=== PATIENT | male | born 1945 | race Caucasian/White ===

== ENCOUNTER → 2017-04-17 | Outpatient (CLI) | payer OTHER | LOC: FIMAGING 10:21 | PROVIDERS: ATTEND Physician Assistant | DX: R10.9 Unspecified abdominal pain (principal) ==

== ENCOUNTER → 2017-05-14 | Outpatient (CLI) | payer OTHER ==
[~2017-05-14] MED LIST: IOPAMIDOL (ISOVUE-300) 100 ML BTL ONE
== END ==
LOC: FIMAGING 07:50
PROVIDERS: ATTEND Internal Medicine Gastroenterology
DX: R14.0 Abdominal distension (gaseous) (principal)
CPT/HCPCS: 74177; Q9967

== ENCOUNTER → 2017-06-02 | Outpatient (CLI) | payer OTHER | LOC: BMCIMAGING 12:14 | PROVIDERS: ATTEND Internal Medicine | DX: R63.4 Abnormal weight loss (principal) ==

== ENCOUNTER → 2017-06-17 | Outpatient (CLI) | payer OTHER | LOC: FIMAGING 08:00 | PROVIDERS: ATTEND Internal Medicine | DX: S73.191A Other sprain of right hip, initial encounter (principal); M25.851 Other specified joint disorders, right hip; M76.01 Gluteal tendinitis, right hip ==

== ENCOUNTER → 2017-06-18 | Outpatient (CLI) | payer OTHER | LOC: FIMAGING 13:11 | PROVIDERS: ATTEND Internal Medicine | DX: N40.0 Benign prostatic hyperplasia without lower urinary tract symptoms (principal) ==

== ENCOUNTER → 2017-07-15 | Outpatient (CLI) | payer OTHER | LOC: BMCIMAGING 09:21 | PROVIDERS: ATTEND Orthopaedic Surgery | DX: M25.551 Pain in right hip (principal) ==

== ENCOUNTER → 2017-08-20 | Outpatient (CLI) | payer OTHER | LOC: BMCIMAGING 11:22 | PROVIDERS: ATTEND Internal Medicine | DX: Z13.820 Encounter for screening for osteoporosis (principal); M85.80 Other specified disorders of bone density and structure, unspecified site ==

== ENCOUNTER → 2018-03-18 | Outpatient (CLI) | payer OTHER | LOC: BMCIMAGING 08:58 | PROVIDERS: ATTEND Orthopaedic Surgery | PROC: BQ101ZZ Fluoroscopy of Right Hip using Low Osmolar Contrast (ICD-10-PCS; principal; 2018-03-18) | DX: M16.11 Unilateral primary osteoarthritis, right hip (principal) ==

== ENCOUNTER → 2018-07-13 | Outpatient (CLI) | payer OTHER | LOC: BMCIMAGING 08:29 | PROVIDERS: ATTEND Orthopaedic Surgery | DX: M16.11 Unilateral primary osteoarthritis, right hip (principal) ==

== ENCOUNTER → 2018-08-11 | Outpatient (CLI) | payer OTHER | PROVIDERS: ATTEND Internal Medicine | DX: R13.10 Dysphagia, unspecified (principal); R07.0 Pain in throat; Z98.890 Other specified postprocedural states | CPT/HCPCS: 74230; 92611; G8996; G8997; G8998 ==

== ENCOUNTER → 2018-08-21 | Outpatient (CLI) | payer OTHER | LOC: FIMAGING 08:27 | PROVIDERS: ATTEND Neurological Surgery | DX: M48.02 Spinal stenosis, cervical region (principal); M50.322 Other cervical disc degeneration at C5-C6 level; M50.323 Other cervical disc degeneration at C6-C7 level ==

== ENCOUNTER → 2018-09-10 | Outpatient (CLI) | payer OTHER | LOC: FIMAGING 14:46 | PROVIDERS: ATTEND Physician Assistant | DX: M40.12 Other secondary kyphosis, cervical region (principal); M50.31 Other cervical disc degeneration, high cervical region ==

== ENCOUNTER 2019-03-10 05:56 | Observation (INO) | payer OTHER ==
[2019-03-10] MEDS ORDERED: LR 1,000 ML IV ONE (06:09)
[2019-03-10] MEDS ORDERED: LIDOCAINE 2% JELLY 20 ML (UROJECT) ONE ×2 (07:01→08:10)
[2019-03-10] MEDS ORDERED: OPIUM/BELLADONNA ALKALO SUPP PR ONE ×2 (07:02→08:11)
--- NOTE | 2019-03-10 07:11 | PDANEPAE ---
ANE Past Medical History - Cardiovascular History Hx Hypertension: Yes Hx Arrhythmias: No Hx Chest Pain: No Hx Coronary Artery / Peripheral Vascular Disease: No Hx CHF / Valvular Disease: No Hx Palpitations: No - Pulmonary History Hx COPD: No Hx Asthma/Reactive Airway Disease: Yes Hx Recent Upper Respiratory Infection: No Hx Oxygen in Use at Home: No Hx Sleep Apnea: No Sleep Apnea Screening Result - Last Documented: Positive Pulmonary History Comment: Mild asthma well controlled. Seasonal allergies. - Neurologic History Hx Cerebrovascular Accident: No Hx Seizures: No Hx Dementia: No - Endocrine History Hx Diabetes: No - Renal History Hx Renal Disorders: No - Liver History Hx Hepatic Disorders: No - Neurological & Psychiatric Hx Hx Neurological and Psychiatric Disorders: Yes Neurological / Psychiatric History Comment: Depression/anxiety. - Cancer History Hx Cancer: Yes Cancer History Comment: Basal cell CA. - Congenital Disorder History Hx Congenital Disorders: No - GI History Hx Gastrointestinal Disorders: Yes Gastrointestinal History Comment: GERD s/p Sameer funduplication. - Other Health History Other Health History: BPH. Turbinectomy. Upper right molar extraction. Non- removable bridge front tooth. Vasectomy - Chronic Pain History Chronic Pain: Yes - Surgical History Prior Surgeries: Thyroplasty 05/2011. C3-C4 fusion 2009. C3-C4 posterior fusion 2009. Basal cell CA resection 2008. Sameer fundoplication 04/2009. R foot surgery MTP greater than 10 years ago. Vasectomy 2001. TUIP 2001. Nasal turbinectomy 1996 ANE Review of Systems Review of Systems: - Exercise capacity METS (RN): 4 METS ANE Patient History - Allergies Allergies/Adverse Reactions: Iodine Contrast Allergy (Severe, Uncoded 03/04/19 09:42) Hives - Home Medications Home Medications: Atorvastatin Calcium 10 mg PO DAILY 03/04/19 [Last Taken 03/09/19] Dextran 70/Hypromellose [Artificial Tears Eye Drops] 1 drop OP PRN 03/04/19 [ Last Taken 03/09/19] Fluticasone Propionate [Flonase Allergy Relief] 2 sprays NS BID 03/04/19 [Last Taken 03/09/19] Levalbuterol Inhaler [Xopenex Hfa Inhaler (*)] 2 puffs IH Q6 PRN 03/04/19 [Last Taken 03/03/19] Losartan Potassium 100 mg PO DAILY 03/04/19 [Last Taken 03/09/19] Mineral Oil/Petrolatum,White [Artificial Tears Eye Ointment] 1 amber OP PRN [Last Taken 03/03/19] Montelukast Sodium 10 mg PO HS 03/04/19 [Last Taken 03/09/19] Multivitamin [One Daily] 1 each PO DAILY 03/04/19 [Last Taken 03/03/19] Naphazoline HCl/Phenir Mal [Eye Allergy Relief Drops] 1 drop OP DAILY PRN [Last Taken 03/09/19] Saliva Substitute Combo No.9 [Biotene (*)] 15 ml MM QID PRN 03/04/19 [Last Taken 03/09/19] Sodium Chloride 5% [Harman-128 5%] 1 drop EACHEYE QID PRN 03/04/19 [Last Taken ] Tamsulosin HCl 0.8 mg PO DAILY18 03/04/19 [Last Taken 03/09/19] Testosterone Cypionate 150 mg IM AD 03/04/19 [Last Taken 03/09/19] Zolpidem Tartrate [Ambien] 5 mg PO HS 03/04/19 [Last Taken 03/09/19] celeCOXIB [Celebrex (*)] 200 mg PO DAILY 03/04/19 [Last Taken 03/03/19] - NPO status NPO Since - Liquids (Date): 03/10/19 NPO Since - Liquids (Time): 01:30 NPO Since - Solids (Date): 03/09/19 NPO Since - Solids (Time): 20:00 - Smoking Hx Smoking Status: Former smoker - Family Anes Hx Family Hx Anesthesia Complications: None. ANE Labs/Vital Signs - Vital Signs Height: 162.56 cm Weight: 56.245 kg ANE Physical Exam - Airway Mallampati Score: Class 2 - ASA Status ASA Status: II ANE Anesthesia Plan Anesthesia Plan: GA w LMA
[2019-03-10] MEDS ORDERED: MIDAZOLAM 2 MG/2 ML VIAL ONE (08:18)
[2019-03-10] MEDS ORDERED: fentaNYL 100 MCG/2 ML INJ ONE (08:20)
[2019-03-10] MEDS ORDERED: PROPOFOL 200 MG/20 ML VIAL ONE (08:21)
[2019-03-10] MEDS ORDERED: METOCLOPRAMIDE 10 MG/2 ML VIAL ONE (08:26)
[2019-03-10] MEDS ORDERED: PHENYLEPHRINE 10 MG/ML SDV ONE (08:26)
[2019-03-10] MEDS ORDERED: ONDANSETRON 4 MG/2 ML VIAL ONE ×2 (08:26→11:02)
[2019-03-10] MEDS ORDERED: LIDOCAINE 2% JELLY 6 ML TOPICAL SYR ONE (08:26)
[2019-03-10] MEDS ORDERED: ceFAZolin 2 GM/DEXTROSE 100 ML IV ONE (09:00)
--- NOTE | 2019-03-10 09:02 | PDHPUP ---
History & Physical Update H&P update statement: This history and physical update is based on an assessment of the patient which was completed after admission or registration (within 24 hours), but prior to the surgery/procedure. H&P update: H&P reviewed & patient examined, no change in patient's condition since H&P completed
[2019-03-10] MEDS ORDERED: OPIUM/BELLADONNA ALKALO SUPP PR PRN (09:05)
[2019-03-10] MEDS ORDERED: HYDROCODONE/APAP 5/325 TAB PO PRN (09:05)
[2019-03-10] MEDS ORDERED: HYDROmorphONE/DILAUDID 1 MG/ML INJ IVP PRN (09:05)
[2019-03-10] MEDS ORDERED: ONDANSETRON 4 MG/2 ML VIAL IVP PRN (09:05)
[2019-03-10] MEDS ORDERED: fentaNYL 100 MCG/2 ML INJ IVP PRN (10:33)
[2019-03-10] MEDS ORDERED: ALBUTEROL 3 ML DEYVIAL IH PRN (10:33)
[2019-03-10] MEDS ORDERED: LR 500 ML IV PRN (10:33)
[2019-03-10] MEDS ORDERED: MEPERIDINE 25 MG/0.5 ML AMP IVP PRN (10:33)
[2019-03-10] MEDS ORDERED: NALOXONE HCL 0.4 MG/ML INJ IVP PRN (10:33)
[2019-03-10] MEDS ORDERED: oxyCODONE IR 5 MG TAB PO PRN (10:33)
[2019-03-10] MEDS ORDERED: PROMETHAZINE HCL 25 MG/ML INJ IVP PRN (10:33)
--- NOTE | 2019-03-10 10:35 | POSTANESTH ---
Post Anesthetic Evaluation Cardiovascular Status: Normal, Stable Respiratory Status: Normal, Stable Level of Consciousness/Mental Status: Can Participate in Eval Pain Control: Adequate, Prn Tx Ordered Nausea/Vomiting Control: Adequate, Prn Tx Ordered Complications Possibly Related to Anesthesia: None Noted
--- NOTE | 2019-03-10 10:36 | POSTOPPROG ---
Post Op Note Date of Operation: 03/10/19 Surgeon: Chanda Vuong Anesthesiologist: Dr. Jean Anesthesia: GET(General Endotracheal) Pre-op Diagnosis: BPH w LUTs Post-op Diagnosis: same Indication: BPH w LUTs Procedure: cysto, TURP Findings: obstructive trilobar hypertrophy Inf/Abcess present in the surg proc area at time of surgery?: No EBL: 50-100 Complications: none, tolerated procedure well Drains: Other (Chaves) Specimen(s): prostate chips
[2019-03-10] MEDS ORDERED: oxyCODONE IR 5 MG TAB ONE (11:02)
--- NOTE | 2019-03-10 11:11 | GOP ---
[f rep st] OPERATIVE REPORT DATE OF OPERATION: 03/10/2019 SURGEON: Chanda Vuong MD ANESTHESIA: General. ANESTHESIOLOGIST: Dr. Jean. PREOPERATIVE DIAGNOSIS: Benign prostatic hyperplasia with lower urinary tract symptoms. POSTOPERATIVE DIAGNOSIS: Benign prostatic hyperplasia with lower urinary tract symptoms. PROCEDURE PERFORMED: Cystoscopy and transurethral resection of prostate in saline. FINDINGS: Obstructive trilobar hypertrophy. SPECIMENS: TURP chips. ESTIMATED BLOOD LOSS: 75 mL. INDICATIONS: The patient presented to my office with significantly bothersome lower urinary tract symptoms. He underwent a cystoscopy in my office showing a large obstructing median lobe, high-riding bladder neck, and lateral coaptation of his prostate. I recommended a transurethral resection of prostate due to the median lobe. He agreed with this plan. I discussed the risks including bleeding, infection, pain, injury to the urethra, the bladder, the ureteral orifices, small risk of bladder neck contracture, small risk of urethral stricture. I did let him know that retrograde ejaculation is expected post procedure, and he understood this. DESCRIPTION OF PROCEDURE: The patient was taken back to the cystoscopy suite, placed on the cystoscopy table in supine position. General anesthesia induced without complication. Time-out performed. Core measures satisfied, including placement of a Marylin Hugger, SCDs, administration of 2 g Ancef antibiotics. He was brought to the end of the table, placed in a dorsal lithotomy position. All pressure points padded. Genitalia draped and prepped in the standard surgical fashion with chlorhexidine due to iodine allergy. Jacob sounds were gently used to dilate the distal urethral meatus up to a 28-Iranian. Then with a visual obturator, the visual obturator was advanced under direct vision into the bladder. The loop was assembled and then resection began after finding both the left and the right ureteral orifices. He did have a prominent median lobe. I started at the 5 and 7 o'clock position, resected posteriorly. Then, I resected just proximal to the verumontanum but did not resect past the verumontanum. I then resected the intervening median lobe tissue, being cognizant of where the ureteral orifices were and the verumontanum at all times. Then, I resected the left lateral lobe, then the right lateral lobe, and then anterior tissue. At the end of the procedure, I felt resection was excellent. He was wide open when sitting at the verumontanum. I used the [employer] evacuator throughout the procedure to remove chips. I used electrocautery liberally to gain hemostasis, and at the end, all chips were removed. He was completely hemostatic, and I was very happy with the resection. The verumontanum and the ureteral orifices were not violated during the resection. The scope was removed. Then, a 24-Iranian 3-way Chaves catheter was placed. Continuous bladder irrigation was initiated, and it was clear to light pink. The chips were gathered for pathology examination. I did place lidocaine jelly into the urethra before placing the Chaves, and I did place a belladonna and opium suppository per rectum for bladder spasms. At this point, the procedure was considered complete. He was awoken from anesthesia and transferred to PACU in good condition. COMPLICATIONS: None. The patient tolerated the procedure well. DRAINS: A Chaves catheter. /[id number]/MODL MTDD
[2019-03-10] MEDS: D5W LR 1,000 ML IV SCH ×2 (12:38→20:16)
[2019-03-10] MEDS: ceFAZolin 2 GM/DEXTROSE 100 ML IV SCH (17:30)
[2019-03-10] MEDS ORDERED: LEVALBUTEROL INHALER 200 PUFFS/15 GM MDI IH PRN (18:04)
[2019-03-10] MEDS ORDERED: TEARS/DEXTRAN 70/HYPROMELLOSE 15 ML OPHT.BTL OP PRN (18:04)
[2019-03-10] MEDS ORDERED: BIOTENE DRY MOUTH ORAL RINSE 237 ML BTL MM PRN (18:04)
[2019-03-10] MEDS: SENNOSIDES/DOCUSATE SODIUM TAB PO SCH (20:17)
[2019-03-10] MEDS: FLUTICASONE NASAL 120 SPRAYS/16 GM MDI EACHNARE SCH (20:18)
[2019-03-10] MEDS ORDERED: MONTELUKAST SODIUM 10 MG TAB PO SCH (21:00)
[2019-03-10] MEDS ORDERED: ZOLPIDEM TARTRATE 5 MG TAB PO SCH (21:00)
[2019-03-11] MEDS: ceFAZolin 2 GM/DEXTROSE 100 ML IV SCH (00:50)
[2019-03-11] MEDS ORDERED: ZOLPIDEM TARTRATE 5 MG TAB PO ONE (02:00)
[2019-03-11] MEDS ORDERED: LOSARTAN POTASSIUM 50 MG TAB PO SCH (09:00)
--- NOTE | 2019-03-11 10:04 | ASMTCASEMG ---
Living Arrangements What is your living Answers: With Spouse arrangement? Who do you live with? Type Of Residence What kind of residence do Answers: House you live in? Discharge Plan Comments Coordination Status Comments Notes: Pt had TURP surgery yesterday by Dr. Vuong. CM met with pt in his room this morning. Pt lives at home in [place] with his Carrie [phone]. He is independent. He does not use any assistive devices. Dr. Vuong anticipates that pt will go home with catheter in. Pt has set a follow-up appointment with Dr. Vuong in her office next Wednesday 03/14. No CM needs identified at this time. CM D/C plan: Independent ot home Date Signed: 03/11/2019 10:03 AM Electronically Signed By:Kimberly Ontiveros
[2019-03-11] MEDS: SENNOSIDES/DOCUSATE SODIUM TAB PO SCH (10:12)
[2019-03-11] MEDS: FLUTICASONE NASAL 120 SPRAYS/16 GM MDI EACHNARE SCH (10:21)
--- NOTE | 2019-03-11 13:33 | SOAPPROG ---
SOAP Progress Note Assessment/Plan: Assessment: POD 1 TURP Doing well, urine light pink. Plan: Voiding trial underway. Nursing to communicate PVRs. Reassured him blood in urine normal. Follow up Thursday in my clinic. 03/11/19 13:30 Subjective: FLOR Told diet Ambulating Objective: Vital Signs Temp Pulse Resp BP Pulse Ox 36.7 C 69 16 118/56 L 96 03/11/19 11:29 03/11/19 11:29 03/11/19 11:29 03/11/19 11:29 03/11/19 11:29 03/10/19 03/11/19 03/12/19 05:59 05:59 05:59 Intake Total 1150 Output Total 1850 Balance -700 Gen NAD A*O CV regular Lungs normal effort Abd soft Ext warm tsai in place, urine light pink off CBI. Filled w NS until pt felt full, tsai removed. Voiding trial underway. - Pending Discharge Pending Discharge Within 24 Hours: Yes Pending Discharge Date: 03/12/19 Pending Discharge Time: 11:00 ICD10 Worksheet Patient Problems: Problems Problem Status Onset BPH (benign prostatic hyperplasia) Acute - ICD10 Problem Qualifiers (1) BPH (benign prostatic hyperplasia) Qualifiers: Lower urinary tract symptom presence: symptoms present Lower urinary tract symptom detail: urinary frequency Qualified Code(s): N40.1 - Benign prostatic hyperplasia with lower urinary tract symptoms; R35.0 - Frequency of micturition ; R35.0 - Frequency of micturition
[2019-03-11 16:16] VITALS: BP 114/53
[2019-03-11] MEDS ORDERED: LIDOCAINE 2% JELLY 20 ML (UROJECT) UR ONE (17:15)
[2019-03-11] MEDS ORDERED: TAMSULOSIN HCL 0.4 MG CAP PO SCH (18:00)
[2019-03-11] MEDS ORDERED: ATORVASTATIN CALCIUM 10 MG TAB PO SCH (18:00)
--- NOTE | 2019-03-17 11:09 | GDS ---
[f rep st] DISCHARGE SUMMARY PROCEDURE PERFORMED: Transurethral resection of prostate in saline. INDICATION FOR ADMISSION: BPH with lower urinary tract symptoms. HOSPITAL COURSE: The patient underwent the procedure without complications. He was admitted overrust on continuous bladder irrigation. His bladder irrigation was able to be weaned by the morning of postoperative day 1. It was turned off. He was ambulating, tolerating general diet, and doing quite well. I decided to attempt to remove his Chaves catheter and do a voiding trial, but he did fail the voiding trial, and an 18-Malay catheter was replaced back by nursing staff. He was discharged with his Chaves catheter and his hospital stay well. He will follow up with me in 3 days for removal of h is catheter and again a voiding trial. DISCHARGE MEDICATIONS: For the medications, please see the EMR. PHYSICAL EXAMINATION: For his exam, please see the EMR. FOLLOWUP: Followup will be for Chaves removal in 3 days. /[id number]/MODL
== END 2019-03-11 19:40 | disposition home or self-care (01) ==
LOC: FSGY 05:56 → F3E 09:05 → F1N 10:41
PROVIDERS: ADMIT Urology; ATTEND Urology
PROC: 0V508ZZ Destruction of Prostate, Via Natural or Artificial Opening Endoscopic (ICD-10-PCS; principal; 2019-03-10 07:30)
DX: N40.1 Benign prostatic hyperplasia with lower urinary tract symptoms (principal); N13.8 Other obstructive and reflux uropathy; I10 Essential (primary) hypertension; L57.0 Actinic keratosis; J45.20 Mild intermittent asthma, uncomplicated; E78.49 Other hyperlipidemia
CPT/HCPCS: 0421T; 88305; J0690; J2250; J2370; J2405; J2704; J2765; J3010

== ENCOUNTER 2019-03-12 16:51 | Emergency (ER) | payer OTHER ==
[2019-03-12] MEDS ORDERED: NS 1,000 ML IV ONE (17:25)
--- NOTE | 2019-03-12 17:25 | EDPHY ---
HPI/HX/ROS/PE/MDM Narrative: CHIEF COMPLAINT: Chaves catheter not draining HPI: This is a 73-year-old male who was status post TURP procedure. Chaves catheter was placed yesterday for concerns of possible urinary retention. This has been draining well until earlier this afternoon when he noticed increase in dark red color of urine followed by cessation of urine flow into the bag and abdominal cramping. He also complains of a low-grade fever at home to 100.1 degrees. Since arrival to the ER, the urine has started to flow again into his catheter and he now reports no abdominal discomfort. REVIEW OF SYSTEMS: A comprehensive 10 system review of systems is otherwise negative aside from elements mentioned in the history of present illness and medical decision making. PMH: Includes TURP. SOCIAL HISTORY: . Urologist is Dr. Vuong. PHYSICAL EXAM: General:Patient is alert, in no acute distress. ENT:Eyes are normal to inspection. ENT inspection normal. Neck: Normal inspection. Full range of motion. Respiratory:No respiratory distress. Breath sounds normal bilaterally. Cardiovascular: Regular rate and rhythm. Strong peripheral pulses. Normal cap refill. Abdomen:The abdomen is nontender to palpation. There are no peritoneal signs. There are normal bowel sounds. Back: Normal to inspection. No tenderness to palpation. : Chaves catheter is in place. Glans and scrotum are normal. There is dark red wine colored urine in the bag. Skin: Normal color. No rash. Warm and dry. Extremities: Normal appearance. Full range of motion. Neuro: Oriented x3. Normal motor function. Normal sensory function. ED Course: 73 y/o male who is s/p TURP procedure presents with concerns for urinary retention; Chaves catheter placed yesterday. On my exam, the catheter is draining , there is lanny hematuria, dark red in color. Plan for labs including CBC, chemistries, UA, co-ag panel. 17:[address] Vuong, urologist. We will flush the catheter here in the emergency department. Catheter flush performed successfully. 19:30 Temperature 36.8. As the patient is afebrile and WBC is within normal limits, I will not place the patient on antibiotics at this time. Plan to discharge home in good condition. He will follow up with his urologist, Dr. Vuong, as scheduled. Follow up and return precautions discussed. He is comfortable with this plan. - Data Points Laboratory Results: Laboratory Results 03/12/19 17:35 03/12/19 17:35 03/12/19 03/12/19 03/12/19 17:35 17:35 17:35 WBC 10.85 10^3/uL H 10^3/uL (3.80-9.50) RBC 3.61 10^6/uL L 10^6/uL (4.40-6.38) Hgb 11.6 g/dL L g/dL (13.7-17.5) Hct 34.1 % L % (40.0-51.0) MCV 94.5 fL fL (81.5-99.8) MCH 32.1 pg pg (27.9-34.1) MCHC 34.0 g/dL g/dL (32.4-36.7) RDW 11.8 % % (11.5-15.2) Plt Count 165 10^3/uL 10^3/uL (150-400) MPV 10.7 fL fL (8.7-11.7) Neut % (Auto) 81.9 % H % (39.3-74.2) Lymph % (Auto) 5.8 % L % (15.0-45.0) [place] % (Auto) 9.2 % % (4.5-13.0) Eos % (Auto) 2.4 % % (0.6-7.6) Baso % (Auto) 0.3 % % (0.3-1.7) Nucleat RBC Rel Count 0.0 % % (0.0-0.2) Absolute Neuts (auto) 8.89 10^3/uL H 10^3/uL (1.70-6.50) Absolute Lymphs (auto) 0.63 10^3/uL L 10^3/uL (1.00-3.00) Absolute Monos (auto) 1.00 10^3/uL H 10^3/uL (0.30-0.80) Absolute Eos (auto) 0.26 10^3/uL 10^3/uL (0.03-0.40) Absolute Basos (auto) 0.03 10^3/uL 10^3/uL (0.02-0.10) Absolute Nucleated RBC 0.00 10^3/uL 10^3/uL (0-0.01) Immature Gran % 0.4 % % (0.0-1.1) Immature Gran # 0.04 10^3/uL 10^3/uL (0.00-0.10) PT 14.0 SEC SEC (12.0-15.0) INR 1.12 (0.83-1.16) APTT 32.5 SEC SEC (23.0-38.0) Sodium 137 mEq/L mEq/L (135-145) Potassium 3.8 mEq/L mEq/L (3.5-5.2) Chloride 104 mEq/L mEq/L (97-110) Carbon Dioxide 24 mEq/l mEq/l (22-31) Anion Gap 9 mEq/L mEq/L (6-14) BUN 21 mg/dL mg/dL (7-23) Creatinine 1.0 mg/dL mg/dL (0.7-1.3) Estimated GFR > 60 Glucose 115 mg/dL H mg/dL (70-100) Calcium 8.7 mg/dL mg/dL (8.5-10.4) Urine Color Urine Appearance Urine pH Ur Specific [place] Urine Protein Urine Ketones Urine Blood Urine Nitrate Urine Bilirubin Urine Urobilinogen Ur Leukocyte Esterase Urine RBC Urine WBC Ur Epithelial Cells Urine Glucose 03/12/19 17:28 WBC RBC Hgb Hct MCV MCH MCHC RDW Plt Count MPV Neut % (Auto) Lymph % (Auto) [place] % (Auto) Eos % (Auto) Baso % (Auto) Nucleat RBC Rel Count Absolute Neuts (auto) Absolute Lymphs (auto) Absolute Monos (auto) Absolute Eos (auto) Absolute Basos (auto) Absolute Nucleated RBC Immature Gran % Immature Gran # PT INR APTT Sodium Potassium Chloride Carbon Dioxide Anion Gap BUN Creatinine Estimated GFR Glucose Calcium Urine Color RED Urine Appearance MODERATELY TURBID Urine pH 6.0 (5.0-7.5) Ur Specific [place] 1.015 (1.002-1.030) Urine Protein 2+ H (NEGATIVE) Urine Ketones NEGATIVE (NEGATIVE) Urine Blood 2+ H (NEGATIVE) Urine Nitrate NEGATIVE (NEGATIVE) Urine Bilirubin NEGATIVE (NEGATIVE) Urine Urobilinogen NEGATIVE EU EU (0.2-1.0) Ur Leukocyte Esterase NEGATIVE (NEGATIVE) Urine RBC 50-182 /hpf H /hpf (0-3) Urine WBC 25-50 /hpf H /hpf (0-3) Ur Epithelial Cells NONE SEEN /lpf /lpf (NONE-1+) Urine Glucose 1+ H (NEGATIVE) Medications Given: Discontinued Medications Sodium Chloride (Ns) 1,000 mls @ 0 mls/hr IV EDNOW ONE; Wide Open PRN Reason: Protocol Stop: 03/12/19 17:26 Last Admin: 03/12/19 17:36 Dose: 1,000 mls General Time Seen by Provider: 03/12/19 17:09 Initial Vital Signs: Initial Vital Signs Temperature (C) 37 C 03/12/19 16:54 Heart Rate 82 03/12/19 16:54 Respiratory Rate 18 03/12/19 16:54 Blood Pressure 125/72 H 03/12/19 16:54 O2 Sat (%) 97 03/12/19 16:54 O2 Delivery Mode Room Air Allergies/Adverse Reactions: Iodinated Contrast- Oral and IV Dye Allergy (Verified 03/11/19 18:22) Hives Home Medications: Medication Instructions Recorded Atorvastatin Calcium 10 mg PO DAILY18 03/04/19 Dextran 70/Hypromellose 1 drop OP DAILY PRN 03/04/19 [Artificial Tears Eye Drops] Fluticasone Propionate [Flonase 2 sprays NS BID 03/04/19 Allergy Relief] Levalbuterol Inhaler [Xopenex Hfa 2 puffs IH Q6 PRN 03/04/19 Inhaler (*)] Losartan Potassium 100 mg PO DAILY 03/04/19 Montelukast Sodium 10 mg PO HS 03/04/19 Saliva Substitute Combo No.9 15 ml MM QID PRN 03/04/19 [Biotene (*)] Tamsulosin HCl 0.8 mg PO DAILY18 03/04/19 Testosterone Cypionate 150 mg IM Q21D 03/04/19 Zolpidem Tartrate [Ambien] 5 mg PO HS 03/04/19 Multivitamins [Multivitamin (*)] 1 each PO DAILY 03/10/19 Zolpidem Tartrate [Ambien 5MG (*)] 5 mg PO DAILY@02 PRN 03/10/19 Hydrocodone/APAP 5/325 [Le[place] 1 - 2 tab PO Q4HRS PRN #10 tab 03/11/19 5/325 (*)] Oxybutynin Chloride 5 mg PO TID PRN #21 tablet 03/11/19 Sennosides/Docusate Sodium 1 tab PO BID PRN #60 tab 03/11/19 [Senokot-S] celeCOXIB [Celebrex (*)] 200 mg PO DAILY #1 cap 03/11/19 Departure - Departure Disposition: Home, Routine, Self-Care Clinical Impression: S/P TURP, Urinary retention Hematuria Qualifiers: Hematuria type: gross Qualified Code(s): R31.0 - Gross hematuria Condition: Good Instructions: Urinary Retention in Men (ED), Hematuria (ED) Additional Instructions: Follow up with Dr. Vuong as scheduled. Return to the emergency department for fever, urinary retention or other recurrence of symptoms, or if you develop chest pain, shortness of breath, or other worsening of condition or further concerns. Referrals: Pushpa Sepulveda MD [Primary Care Provider] - As per Instructions Chanda Vuong MD [Medical Doctor] - As per Instructions Report Scribed for: Dimitry Gunderson Report Scribed by: Meme Littlejohn Date of Report: 03/12/19 Time of Report: 17:26 Physician Review and Approval Statement: Portions of this note were transcribed by an ED scribe. I personally performed the history, physical exam, and medical decision making; and confirm the accuracy of the information in the transcribed note.
[2019-03-12 17:46] LABS: PLATELET COUNT 165 10^3/uL (150-400)
[2019-03-12 18:04] LABS: INR 1.12 (0.83-1.16)
[2019-03-12 19:30] VITALS: BP 135/66
== END 2019-03-12 19:45 | disposition home or self-care (01) ==
DX: R33.9 Retention of urine, unspecified (principal); R31.0 Gross hematuria; Z98.890 Other specified postprocedural states

== ENCOUNTER 2019-03-13 11:41 | Emergency (ER) | payer OTHER ==
--- NOTE | 2019-03-13 11:45 | EDPHY ---
H & P Time Seen by Provider: 03/13/19 11:45 HPI/ROS: HPI: This is a 73-year-old male who presents with Chief Complaint: Tsai not working/draining Location: Quality: Tsai not working/straining Duration: Signs and Symptoms: no fever, no nausea, no vomiting, no hematemesis, no blood in stool, no abdominal bloating, no diarrhea, no back pain, no urinary symptoms , no testicular/groin pain, no indigestion, no chest pain, no shortness of breath Timing: Acute Severity: [id number] Context: Patient has a history of TURP on Thursday with Dr. Chanda Vuong, Tsai catheter placed on 03/11/2019 secondary to urinary retention, presents for the 2nd time to the emergency room in 24 hr with complaints of fully "not draining." He reports that he change the bag yesterday evening, went to bed, woke up this morning with no urine in his Tsai bag. Patient reports that he has suprapubic fullness and bloating. Denies fever, chills. Does not take any blood thinners. Yesterday in the emergency room Tsai catheter flushed with good urine return. He has an appointment with Dr. Vuong on Thursday Modifying Factors: None Comment: ROS: A comprehensive 10 system review of systems is otherwise negative aside from elements mentioned in the history of present illness. MEDICAL/SURGICAL/SOCIAL HISTORY: Medical history: Hypertension cyst, arthritis Surgical history: TURP Social history: Retired. Former smoker. Family history noncontributory. CONSTITUTIONAL: Very polite and talkative elderly white male, awake and alert, no obvious distress HEENT: Atraumatic and normocephalic, PERRL, EOMI. Nares patent; no rhinorrhea; no nasal mucosal edema. Tympanic membranes clear. Oropharynx clear, no exudate and moist pink mucosa. Airway patent. No lymphadenopathy. No meningismus. Cardiovascular: Normal S1/S2, regular rate, regular rhythm, without murmur rub or gallop. PULMONARY/CHEST: Symmetrical and nontender. Clear to auscultation bilaterally. Good air movement. No accessory muscle usage. ABDOMEN: Soft, nondistended, nontender, no rebound, no guarding, no peritoneal signs, no masses or organomegaly. No CVAT. Male : circumcised penis, bilateral descended testes, no testicular swelling, no testicular masses, no penile discharge, no lesions, negative Prehn's sign. Tsai catheter in urethra with no urine noted in bag. EXTREMITIES: 2/2 pulses, strength 5/5, no deformities, no clubbing, no cyanosis or edema. NEUROLOGICAL: no focal neuro deficits. GCS 15. SKIN: Warm and dry, no erythema. no rash. Good capillary refill. Source: Patient, Old records Exam Limitations: No limitations - Medical/Surgical History Hx Asthma: No Hx Chronic Respiratory Disease: No Hx Diabetes: No Hx Cardiac Disease: No Hx Renal Disease: No Hx Cirrhosis: No Hx Alcoholism: No Hx HIV/AIDS: No Hx Splenectomy or Spleen Trauma: No Other PMH: TURP 3 days ago with tsai insertion. htn arthirits - Social History Smoking Status: Former smoker Constitutional: Initial Vital Signs Temperature (C) 36.7 C 03/13/19 11:52 Heart Rate 86 03/13/19 11:52 Respiratory Rate 18 03/13/19 11:52 Blood Pressure 141/68 H 03/13/19 11:52 O2 Sat (%) 97 03/13/19 11:52 O2 Delivery Mode Room Air Allergies/Adverse Reactions: Iodinated Contrast- Oral and IV Dye Allergy (Verified 03/13/19 11:54) Hives Home Medications: Medication Instructions Recorded Atorvastatin Calcium 10 mg PO DAILY18 03/04/19 Dextran 70/Hypromellose 1 drop OP DAILY PRN 03/04/19 [Artificial Tears Eye Drops] Fluticasone Propionate [Flonase 2 sprays NS BID 03/04/19 Allergy Relief] Levalbuterol Inhaler [Xopenex Hfa 2 puffs IH Q6 PRN 03/04/19 Inhaler (*)] Losartan Potassium 100 mg PO DAILY 03/04/19 Montelukast Sodium 10 mg PO HS 03/04/19 Saliva Substitute Combo No.9 15 ml MM QID PRN 03/04/19 [Biotene (*)] Tamsulosin HCl 0.8 mg PO DAILY18 03/04/19 Testosterone Cypionate 150 mg IM Q21D 03/04/19 Zolpidem Tartrate [Ambien] 5 mg PO HS 03/04/19 Multivitamins [Multivitamin (*)] 1 each PO DAILY 03/10/19 Zolpidem Tartrate [Ambien 5MG (*)] 5 mg PO DAILY@02 PRN 03/10/19 Hydrocodone/APAP 5/325 [[place] 1 - 2 tab PO Q4HRS PRN #10 tab 03/11/19 5/325 (*)] Oxybutynin Chloride 5 mg PO TID PRN #21 tablet 03/11/19 Sennosides/Docusate Sodium 1 tab PO BID PRN #60 tab 03/11/19 [Senokot-S] celeCOXIB [Celebrex (*)] 200 mg PO DAILY #1 cap 03/11/19 Medical Decision Making ED Course/Re-evaluation: Vital signs reviewed and stable upon arrival. No systemic signs. Chart review shows laboratory studies and urinalysis were stable from yesterday. No signs of infection or indication for antibiotics. Bladder ultrasound ordered at bedside per RN ygosx=674 mL Stai catheter flushed with 30 ML and returning of reddish colored urine with clots RN at bedside instructed patient on Tsai care This patient was seen under the supervision of my secondary supervising physician. I evaluated and cared for this patient independently. Differential Diagnosis: Differential diagnosis includes but is not limited to clotting, urinary retention, Tsai malfunction. Departure - Departure Disposition: Home, Routine, Self-Care Clinical Impression: Tsai catheter problem Qualifiers: Encounter type: subsequent encounter Qualified Code(s): T83.9XXD - Unspecified complication of genitourinary prosthetic device, implant and graft, subsequent encounter Condition: Good Instructions: Tsai Catheter Placement and Care (ED) Additional Instructions: Please flush tsai as needed for clot dislodgement. Attached tsai night bag during the evening and switch to day bag during the day. Follow-up with Dr. Lakhani on Thursday. Referrals: Pushpa Sepulveda MD [Primary Care Provider] - As per Instructions Chanda Vuong MD [Medical Doctor] - As per Instructions
[2019-03-13 15:07] VITALS: BP 126/88
== END 2019-03-13 15:07 | disposition home or self-care (01) ==
PROC: 3E1K78Z Irrigation of Genitourinary Tract using Irrigating Substance, Via Natural or Artificial Opening (ICD-10-PCS; principal; 2019-03-13)
PROC: 4A0D7LZ Measurement of Urinary Volume, Via Natural or Artificial Opening (ICD-10-PCS; principal; 2019-03-13)
DX: R33.9 Retention of urine, unspecified (principal); T83.9XXA Unspecified complication of genitourinary prosthetic device, implant and graft, initial encounter; I10 Essential (primary) hypertension; Z87.891 Personal history of nicotine dependence; Z98.890 Other specified postprocedural states